=== PATIENT | male | born 1955 | race Caucasian/White ===

== ENCOUNTER 2017-04-17 16:18 | Inpatient (IN) ==
--- NOTE | 2017-04-17 16:50 | Emergency Department Note ---
Disposition Clinical Impression: Renal failure, Hyperkalemia, Dehydration Disposition: Admitted As Inpatient Condition: Fair Referrals: Alyssa Cartwright MD [Primary Care Provider] - Forms: Work/School Release, ED Satisfaction Letter Time of Disposition: 19:21 ([facility]) Nausea/Vomiting/Diarrhea HPI - General Chief complaint: ED General Medical Stated complaint: Vomiting x 2 weeks, SOB, constipation Time Seen by Provider: 04/17/17 16:38 Source: patient Mode of arrival: ambulatory Limitations: no limitations Nursing Notes Reviewed: Yes Vital Signs Reviewed: Yes - History of Present Illness HPI Narrative: pt saw FP earlier this week given antiemetic and no labs ordered at that time no x-rays ordered according to the patient had not had a bowel movement 2 weeks was told to continue with his present medications he had a bowel movement earlier today and since then he just had continued diarrhea he denies fever chills lightheadedness dizziness states the abdominal cramping is better patient states that his week has no energy denies any chest pain chest pressure palpitations states urine output is still down Pt Subjective Complaint: nausea, vomiting, abdominal pain Onset (ago): week(s) (2) Description of emesis: food contents If pain, Location of pain: diffuse Severity: moderate Severity scale (1-10): 5 Quality: cramping Consistency: constant Improves with: bowel movement Worsens with: eating, bowel movement, vomiting Associated symptoms: Reports: loss of appetite, nausea/vomiting, weakness. Denies: myalgias, chest pain, cough, diaphoresis, fever/chills, headaches, malaise, rash, dysuria, shortness of breath, syncope - Related Data Home Medications Medication Instructions Recorded Confirmed Gemfibrozil [Lopid] 600 mg PO BIDWM 09/07/15 04/17/17 Insulin Aspart Prot/Insuln Asp 50 unit SQ TIDAC 09/07/15 04/17/17 [Novolog Mix 70-30 Flexpen Syrn] Metoprolol [Lopressor] 25 mg PO BID 09/07/15 04/17/17 Omeprazole [Prilosec] 40 mg PO DAILY 09/07/15 04/17/17 ALPRAZolam [Xanax 1 MG Tablet] 1 mg PO QID PRN 04/17/17 04/17/17 Amlodipine Besylate/Benazepril 1 each PO DAILY 04/17/17 04/17/17 [Lotrel 10-20 mg Capsule] Budesonide/Formoterol 160/4.5 2 puff IH BIDR 04/17/17 04/17/17 [Symbicort 160/4.5] Dutasteride [Avodart] 0.5 mg PO DAILY 04/17/17 04/17/17 Hydrocodone/Ibuprofen 1 each PO Q6H 04/17/17 04/17/17 [Hydrocodone-Ibuprofen 10-200] Ipratropium/Albuterol Sulfate 4 gm IH QID 04/17/17 04/17/17 [Combivent Respimat Inhal [place]] Niacin [Niacor] 500 mg PO BID 04/17/17 04/17/17 Tamsulosin HCl [Flomax] 0.4 mg PO PRN PRN 04/17/17 04/17/17 Allergies Allergy/AdvReac Type Severity Reaction Status Date / Time No Known Allergies Allergy Verified 08/31/15 08:36 All systems ED: reviewed and negative except as stated. Constitutional: Reports: weakness. Denies: fever, chills Eyes: Denies: eye pain, eye discharge ENT ED: Denies: ear pain, throat pain Cardiovascular: Denies: chest pain, palpitations Respiratory: Denies: cough, dyspnea Gastrointestinal: Reports: abdominal pain, nausea, vomiting, constipation, other (now profound diarrhea) Genitourinary: Denies: urgency, dysuria Musculoskeletal: Denies: back pain, neck pain Integumentary: Denies: rash, abrasion Neurological: Denies: headache Psychiatric: Denies: anxiety Endocrine: Denies: fatigue Hematological/Lymphatic: Denies: easy bleeding Allergic/Immunologic: Denies: facial swelling Past Medical History - Past Medical History Attestation: Yes The following information was validated with the patient. Source: patient, old records reviewed, nursing notes reviewed Medical history: Reports: cancer, COPD, diabetes, hyperlipidemia, hypertension, other Surgical history: Reports: cancer surgery Psychiatric history: Reports: no psych history - Social History Smoking Status: Current every day smoker Smokeless Tobacco Status: No Alcohol use: Reports: none Drug use: Reports: none Physical Exam - General Limitations: no limitations General appearance: alert, in no apparent distress - Head Head exam: atraumatic, normocephalic, normal inspection - Eye Eye exam: Present: normal appearance, PERRL, EOMI - ENT ENT exam: normal exam, normal oropharynx, mucous membranes moist, TM's normal bilaterally, normal external ear exam - Neck Neck exam: Present: normal inspection, full ROM, trachea midline - Chest Chest inspection: Present: normal inspection, symmetric chest wall rise - Respiratory Respiratory exam: Present: normal lung sounds bilaterally - Cardiovascular Cardiovascular exam: Present: regular rate, normal rhythm, normal heart sounds - Abdominal Exam Abdominal exam: Present: soft, Non-Tender, normal bowel sounds. Absent: mass, pulsatile mass - Extremities Exam Extremities exam: Present: other (generalized weakness thru) - Expanded Lower Extremity Exam Neurovascular/Tendon exam: Present: normal capillary refill, normal fine/light touch Gait: observed and normal - Back Exam Back exam: Present: normal inspection, full ROM. Absent: muscle spasm - Neurological Exam Neurological exam: Present: alert, oriented X3, CN II-XII intact - Psychiatric Psychiatric exam: Present: normal affect, normal mood - Skin Skin exam: Present: warm, dry, intact, normal color Course Course Narrative: [facility] seen and examined [facility] Vital Signs Temperature 98.3 F 04/17/17 16:26 Pulse Rate 82 04/17/17 16:26 Respiratory Rate 22 04/17/17 16:26 Blood Pressure 113/67 04/17/17 16:26 O2 Sat by Pulse Oximetry 97 04/17/17 16:26 Temperature 98.3 F 04/17/17 16:30 Pulse Rate 70 04/17/17 18:38 Respiratory Rate 16 04/17/17 18:38 Blood Pressure 128/71 04/17/17 18:38 O2 Sat by Pulse Oximetry 99 04/17/17 18:38 Oxygen Delivery Oxygen Delivery Room Air Nausea/Vomiting/Diarrhea - Differential Diagnosis Likely: dehydration - Medical Records Medical records reviewed: Yes I reviewed the patient's medical records. - Lab Data Lab results reviewed: Yes I reviewed the patient's lab results. Result diagrams: 04/17/17 17:00 04/17/17 17:00 Lab Results 04/17/17 04/17/17 04/17/17 Range/Units 15:44 17:00 17:00 WBC 9.4 (4.3-11.1) K/mcL RBC 4.29 (4.19-5.50) M/mcL Hgb 12.9 (12.9-16.9) g/dL Hct 37.5 (37.5-50.1) % MCV 87.4 (83.0-100.0) fL MCH 30.1 (28.0-33.3) pg MCHC 34.4 (31.6-35.5) g/dL RDW 12.4 (11.5-14.5) % Plt Count 327 (140-400) K/mcL MPV 10.3 (9.4-12.4) fL Immature Gran % 1.0 (0-4) % Seg Neutrophils % 72.1 % Lymphocytes % 18.0 % Monocytes % 8.2 % Eosinophils % 0.5 % Basophils % 0.2 % Neutrophils # 6.7 (1.6-8.9) K/mcL Lymphocytes # 1.7 (0.6-4.6) K/mcL Monocytes # 0.8 (0.0-1.3) K/mcL Eosinophils # 0.1 (0.0-0.6) K/mcL Basophils # 0.0 (0.0-0.2) K/mcL PT 12.0 (9.4-12.1) Seconds INR 1.1 APTT 36.4 H (26.0-36.0) Seconds Sodium (136-145) mEq/L Potassium 7.6 H* (3.5-4.5) mEq/L Chloride (98-109) mEq/L Carbon Dioxide (19-29) mEq/L BUN (8-26) mg/dL Creatinine (0.72-1.25) mg/dL Est GFR ( Amer) (> 60) Est GFR (Non-Af Amer) (> 60) BUN/Creatinine Ratio (6-26) Glucose (70-99) mg/dL Calculated Osmolality (280-300) Calcium (8.6-10.8) mg/dL Total Bilirubin (0.2-1.2) mg/dL AST (5-34) Units/L ALT (0-55) Units/L Alkaline Phosphatase (38-126) Units/L Serum Total Protein (6.0-8.3) g/dL Albumin (3.5-5.0) g/dL Globulin (2.4-3.5) g/dL Albumin/Globulin Ratio (1.1-2.2) Urine Color (Yellow) Urine Clarity (Clear) Urine pH (5.0-8.0) pH Units Ur Specific Sterling (1.010-1.025) Urine Protein (Neg-Trace) mg/dL Urine Glucose (UA) (Normal) mg/dL Urine Ketones (Negative) mg/dL Urine Blood (Negative) Urine Nitrite (Negative) Urine Bilirubin (Negative) Urine Urobilinogen (Normal) mg/dL Ur Leukocyte Esterase (Negative) Ur Culture Indicated? (NO) 04/17/17 04/17/17 Range/Units 17:00 17:10 WBC (4.3-11.1) K/mcL RBC (4.19-5.50) M/mcL Hgb (12.9-16.9) g/dL Hct (37.5-50.1) % MCV (83.0-100.0) fL MCH (28.0-33.3) pg MCHC (31.6-35.5) g/dL RDW (11.5-14.5) % Plt Count (140-400) K/mcL MPV (9.4-12.4) fL Immature Gran % (0-4) % Seg Neutrophils % % Lymphocytes % % Monocytes % % Eosinophils % % Basophils % % Neutrophils # (1.6-8.9) K/mcL Lymphocytes # (0.6-4.6) K/mcL Monocytes # (0.0-1.3) K/mcL Eosinophils # (0.0-0.6) K/mcL Basophils # (0.0-0.2) K/mcL PT (9.4-12.1) Seconds INR APTT (26.0-36.0) Seconds Sodium 129 L (136-145) mEq/L Potassium 8.1 H* (3.5-4.5) mEq/L Chloride 104 (98-109) mEq/L Carbon Dioxide 10 L* (19-29) mEq/L BUN 68 H (8-26) mg/dL Creatinine 2.20 H (0.72-1.25) mg/dL Est GFR ( Amer) 37 L (> 60) Est GFR (Non-Af Amer) 30 L (> 60) BUN/Creatinine Ratio 31 H (6-26) Glucose 202 H (70-99) mg/dL Calculated Osmolality 294 (280-300) Calcium 10.1 (8.6-10.8) mg/dL Total Bilirubin 0.4 (0.2-1.2) mg/dL AST 15 (5-34) Units/L ALT 8 (0-55) Units/L Alkaline Phosphatase 94 (38-126) Units/L Serum Total Protein 7.4 (6.0-8.3) g/dL Albumin 3.4 L (3.5-5.0) g/dL Globulin 4.0 H (2.4-3.5) g/dL Albumin/Globulin Ratio 0.9 L (1.1-2.2) Urine Color Yellow (Yellow) Urine Clarity Clear (Clear) Urine pH 5.0 (5.0-8.0) pH Units Ur Specific Sterling 1.020 (1.010-1.025) Urine Protein Negative (Neg-Trace) mg/dL Urine Glucose (UA) Normal (Normal) mg/dL Urine Ketones 15 H (Negative) mg/dL Urine Blood Negative (Negative) Urine Nitrite Negative (Negative) Urine Bilirubin Small H (Negative) Urine Urobilinogen Normal (Normal) mg/dL Ur Leukocyte Esterase Negative (Negative) Ur Culture Indicated? NO (NO) - Radiology Data Radiology results reviewed: Yes I reviewed the patient's radiology results. - EKG Data EKG attestation: Yes I reviewed and interpreted this EKG. EKG results narrative: Sinus rhythm rate 77 GA 198 QRS 92 QT 330 excess -49 Critical Care Time Critical Care Time: Yes Total Critical Care Time: 35 Attestation: Critical care performed:35 minutes due to the patient having a hyperkalemia with the patient as result of the patient requiring medications to reverse the potassium and repeating the potassium shifting that is actually much lower patient though was admitted for observation service of Dr. Newman Time is exclusive of separately billable procedures. Time includes: direct patient care, patient reassessment, coordination of patient care, interpretation of data (laboratory data, radiology data, and respiratory data), review of patient's medical records, medical consultation and documentation of patient care. Procedures included in critical care time: Procedures excluded from critical care time:
[2017-04-17 17:06] LABS: Basophils % 0.2 %; Eosinophils # 0.1 K/mcL (0.0-0.6); Eosinophils % 0.5 %; Hematocrit 37.5 % (37.5-50.1); Hemoglobin 12.9 g/dL (12.9-16.9); Lymphocytes # 1.7 K/mcL (0.6-4.6); Mean Corpuscular HGB Conc 34.4 g/dL (31.6-35.5); Mean Corpuscular Hemoglobin 30.1 pg (28.0-33.3); Mean Corpuscular Volume 87.4 fL (83.0-100.0); Mean Platelet Volume 10.3 fL (9.4-12.4); Monocytes # 0.8 K/mcL (0.0-1.3); Monocytes % 8.2 %; Neutrophils # 6.7 K/mcL (1.6-8.9); Platelet Count 327 K/mcL (140-400); Red Blood Count 4.29 M/mcL (4.19-5.50); Red Cell Distribution Width 12.4 % (11.5-14.5); Segmented Neutrophils % 72.1 %
[2017-04-17 17:11] LABS: INR 1.1
[2017-04-17 17:14] LABS: Activated Partial Thrombo Time 36.4 Seconds (26.0-36.0)
[2017-04-17 17:15] LABS: Bilirubin,Urine Small (Negative); Blood,Urine Negative (Negative); Clarity,Urine Clear (Clear); Color,Urine Yellow (Yellow); Glucose,Urine (UA) Normal (Normal); Ketones,Urine 15 mg/dL (Negative); Leukocyte Esterase,Urine Negative (Negative); Nitrite,Urine Negative (Negative); Protein,Urine Negative (Neg-Trace); Urobilinogen,Urine Normal (Normal)
[2017-04-17 17:22] LABS: Albumin 3.4 g/dL (3.5-5.0); Albumin/Globulin Ratio 0.9 (1.1-2.2); Bilirubin,Total 0.4 mg/dL (0.2-1.2); Calcium 10.1 mg/dL (8.6-10.8); Total Protein 7.4 g/dL (6.0-8.3)
[2017-04-17 17:25] LABS: Potassium 8.1 mEq/L (3.5-4.5)
[2017-04-17] MEDS ORDERED: Calcium Gluconate 1,000 MG in D5% in Water 100 ML IVPB ONE (17:26)
[2017-04-17] MEDS ORDERED: Insulin Regular, Human 100 UNIT/ML SQ ONE (17:26)
[2017-04-17] MEDS ORDERED: 0.9 % Sodium Chloride 1,000 ML IVC ONE (17:26)
[2017-04-17] MEDS: *HR* Dextrose 50 % in Water (Syg) 50 ML SYRINGE IVP STA ×2 (17:37→17:40)
[2017-04-17] MEDS ORDERED: Insulin Regular, Human 100 UNIT/ML IV ONE (17:47)
[2017-04-17] MEDS ORDERED: Ondansetron 4 MG/2 ML VIAL IVP ONE (20:39)
[2017-04-17] MEDS ORDERED: *HR* Dextrose 50 % in Water (Syg) 50 ML SYRINGE IVP PRN (20:39)
[2017-04-17] MEDS ORDERED: IBUPROFEN PO SCH (20:39)
[2017-04-17] MEDS ORDERED: Naloxone 0.4 MG/ML INJ IVP PRN (20:39)
[2017-04-17] MEDS ORDERED: ALPRAZolam 1 MG TABLET PO PRN (20:39)
[2017-04-17] MEDS ORDERED: Dextrose Gel 15 GM PO PRN ×2 (20:39)
[2017-04-17] MEDS ORDERED: D5% in Water 1,000 ML IVC PRN (20:39)
[2017-04-17] MEDS ORDERED: HYDROCODONE PO SCH (20:39)
[2017-04-17] MEDS ORDERED: [UNRECOGNIZED DRUG - OTHER] PO SCH (20:39)
[2017-04-17] MEDS ORDERED: NON-FORMULARY MEDICATION 1 EACH EACH (Ipratropium/Albuterol Sulfate [Combivent Respimat In IH SCH (21:00)
[2017-04-17] MEDS: 0.9 % Sodium Chloride 1,000 ML IVC SCH (21:27)
[2017-04-17] MEDS: Niacin (24 HR) 500 MG TAB.ER.24H PO SCH (21:27)
[2017-04-18] MEDS ORDERED: *HR* HYDROcodone/Acet 10/325 mg TABLET PO ONE
[2017-04-18] MEDS: Ipratropium 1 PUFF INHALER IH SCH ×5 (00:26→22:01)
[2017-04-18] MEDS: Budesonide/Formoterol 160/4.5 MDI IH SCH ×3 (00:26→22:00)
[2017-04-18] MEDS: 0.9 % Sodium Chloride 1,000 ML IVC SCH (05:31)
[2017-04-18 06:25] LABS: Basophils % 0.3 %; Eosinophils # 0.1 K/mcL (0.0-0.6); Eosinophils % 1.7 %; Hematocrit 34.6 % (37.5-50.1); Hemoglobin 11.9 g/dL (12.9-16.9); INR 1.1; Immature Granulocytes % 1.3 % (0-4); Lymphocytes # 2.1 K/mcL (0.6-4.6); Lymphocytes % 27.2 %; Mean Corpuscular HGB Conc 34.4 g/dL (31.6-35.5); Mean Corpuscular Hemoglobin 30.5 pg (28.0-33.3); Mean Corpuscular Volume 88.7 fL (83.0-100.0); Mean Platelet Volume 11.2 fL (9.4-12.4); Monocytes # 1.1 K/mcL (0.0-1.3); Monocytes % 13.9 %; Neutrophils # 4.3 K/mcL (1.6-8.9); Platelet Count 265 K/mcL (140-400); Red Cell Distribution Width 12.5 % (11.5-14.5); Segmented Neutrophils % 55.6 %
[2017-04-18 06:27] LABS: Activated Partial Thrombo Time 34.2 Seconds (26.0-36.0)
[2017-04-18 07:00] LABS: Calcium 9.5 mg/dL (8.6-10.8); Phosphorous 3.7 mg/dL (2.3-4.7); Potassium 6.3 mEq/L (3.5-4.5)
[2017-04-18] MEDS ORDERED: NON-FORMULARY MEDICATION 1 EACH EACH (Insulin Aspart Prot/Insuln Asp [Novolog Mix 70-30 Fl SQ SCH (07:30)
[2017-04-18] MEDS: Niacin (24 HR) 500 MG TAB.ER.24H PO SCH ×2 (08:10→21:10)
[2017-04-18] MEDS: amLODIPine 5 MG TABLET PO SCH (08:11)
[2017-04-18] MEDS: Finasteride 5 MG TABLET PO SCH (08:11)
[2017-04-18] MEDS: Insulin LISPRO 300 UNITS/3 ML VIAL SQ SCH ×3 (08:11→16:30)
[2017-04-18] MEDS ORDERED: Lisinopril 20 MG TABLET PO SCH (09:00)
[2017-04-18] MEDS ORDERED: NON-FORMULARY MEDICATION 1 EACH EACH (Amlodipine Besylate/Benazepril [Lotrel 10-20 Mg Caps PO SCH (09:00)
[2017-04-18] MEDS: Insulin NPH/REG 70/30 100 UNIT/ML (x5UNIT) SQ SCH ×3 (09:09→20:35)
--- NOTE | 2017-04-18 11:34 | Internal Med History&Physical ---
Date of Encounter: 04/18/17 Time of Encounter: 11:10 Assessment and Plan (1) Acute on chronic renal failure Current visit: Yes Status: Acute We will hold Lotrel and Vicoprofen. IV fluids will be given and renal indices monitored Qualifiers: Acute renal failure type: unspecified Chronic kidney disease stage: stage 3 (moderate) Qualified Code(s): N17.9 - Acute kidney failure, unspecified; N18.3 - Chronic kidney disease, stage 3 (moderate) (2) Metabolic acidosis Current visit: Yes Status: Acute Normal anion gap. Suspect primarily due to renal failure with superimposed GI losses. Will hold medications as above and recheck labs in a.m. (3) Anemia Current visit: Yes Status: Acute Hemoglobin has decreased to 11.9 on follow-up labs 04/18/2017. Will order anemia testing in a.m. Qualifiers: Anemia type: unspecified type Qualified Code(s): D64.9 - Anemia, unspecified (4) Hypertension Current visit: Yes Status: Chronic Will hold Lotrel but continue Lopressor and monitor blood pressure. Qualifiers: Hypertension type: essential hypertension Qualified Code(s): I10 - Essential (primary) hypertension (5) Hyperkalemia Current visit: Yes Status: Acute Primarily due to acidosis. We will give additional Kayexalate. Internal Medicine - H&P: HPI Chief complaint: Nausea and renal failure Admitted From: Home Plans for Post Hospital Care: Home History of present illness: Mr. Lopez is a 61 year old male who came to emergency room stating he had onset of nausea approximately one month ago. There was occasional vomiting but he denies hematemesis melena or hematochezia. He had occasional abdominal pain that he simply describes as a diffuse "hurting" in his abdomen. He saw his PCP Dr. Cartwright last week who gave him "medicine". He does not know the name. He states the pill did not help so he came to emergency room and was evaluated and found to have metabolic acidosis with hyperkalemia and acute on chronic renal failure. He was admitted to [facility] floor for ongoing care needs. He states he feels improved at the present time. He denies previous similar episodes. He denies disorders of his liver gallbladder or exocrine pancreas. Past Med Surg Social Fam HX - Past Medical History Medical history: cancer, COPD, diabetes, hyperlipidemia, hypertension, other Psychiatric history: no psych history - Past Surgical History Surgical History: cancer surgery - Social History Smoking Status: Current every day smoker Packs per day: 1 Smokeless Tobacco Status: No Alcohol use: none Drug use: none - Family History Sister Living Status: Still Living Hx Family Endocrine Disorder: Yes (DM 2) Internal Medicine - H&P: Meds Gemfibrozil [Lopid] 600 mg PO BIDWM 09/07/15 [History] Insulin Aspart Prot/Insuln Asp [Novolog Mix 70-30 Flexpen Syrn] 50 unit SQ TIDAC 09/07/15 [History] Metoprolol [Lopressor] 25 mg PO BID 09/07/15 [History] Omeprazole [Prilosec] 40 mg PO DAILY 09/07/15 [History] ALPRAZolam [Xanax 1 MG Tablet] 1 mg PO QID PRN 04/17/17 [History] Amlodipine Besylate/Benazepril [Lotrel 10-20 mg Capsule] 1 each PO DAILY [History] Budesonide/Formoterol 160/4.5 [Symbicort 160/4.5] 2 puff IH BIDR 04/17/17 [ History] Dutasteride [Avodart] 0.5 mg PO DAILY 04/17/17 [History] Hydrocodone/Ibuprofen [Hydrocodone-Ibuprofen 10-200] 1 each PO Q6H 04/17/17 [ History] Ipratropium/Albuterol Sulfate [Combivent Respimat Inhal [place]] 4 gm IH QID 04/17 [History] Niacin [Niacor] 500 mg PO BID 04/17/17 [History] Tamsulosin HCl [Flomax] 0.4 mg PO PRN PRN 04/17/17 [History] Allergies No Known Allergies Allergy (Verified 08/31/15 08:36) All Systems PM: A 10-system review of systems was performed and is negative for pertinent findings except as documented above in the HPI. Review of systems: Gen.: He states his weight has decreased from 190 pounds 5 months ago to present weight of approximately 145 pounds. This was unintentional he has no explanation for it Cardiovascular: He has history of hypertension but denies ND heart failure angina DVT or pulmonary embolus Respiratory: He smokes since age 11 of 2 packs per day. He had PFTs several years and was told he had COPD. He does not use home oxygen. He has not been tested for sleep apnea. GI: As per history of present illness : He has BPH and has seen a urologist. From review of available archived labs has chronic kidney disease stage 2-3 but was unaware of this. He denies other kidney or bladder disorders Neurologic: He denies large distribution strokes or seizures Endocrine: He was diagnosed with DM 2 approximately 10 years ago. He has hyperlipidemia but denies thyroid disease. TSH was normal October 2016 Hematology/oncology: He had skin cancer removed from his head but denies internal malignancies or other blood disorders Psychiatric: He denies anxiety depression or other mental health issues Musk skeletal: He has DJD but denies gout or other bone joint or muscle disorders. - Constitutional Vitals: Temp Pulse Resp BP Pulse Ox 98.5 F 79 18 113/67 98 04/18/17 07:05 04/18/17 07:05 04/18/17 07:05 04/18/17 07:05 04/18/17 07:05 Exam: Gen.: He is a well-developed well-nourished male who appears in no acute distress at present time HEENT: Head is atraumatic and normocephalic. Eyes: EOMI. There is no scleral icterus. Mouth: Mucosa is moist. Neck: Supple and nontender. There is no thyromegaly or adenopathy noted. Heart: Regular without murmurs gallops or ectopics Lungs: No wheezes or crackles are heard Abdomen: Soft and nontender. No masses or guarding are noted. Bowel sounds are present. Extremities: There is no cyanosis edema or clubbing noted. Dorsalis pedis and posttibial pulses are 1-2 over 2 bilaterally. Neurologic: Mental status: He is talkative and a good historian. Cranial nerves : Smile is symmetric. Forehead wrinkles bilaterally. Tongue protrudes midline. EOMI. Motor: There is no pronator drift. Cerebellar: Finger to nose is intact bilaterally. Skin: Warm and dry Internal Med - H&P Results - Labs CBC & Chem 7: 04/18/17 05:25 04/18/17 05:25 Labs: Short CBC 04/18/17 Range/Units 05:25 WBC 7.6 (4.3-11.1) K/mcL Hgb 11.9 L (12.9-16.9) g/dL Hct 34.6 L (37.5-50.1) % Plt Count 265 (140-400) K/mcL Neutrophils # 4.3 (1.6-8.9) K/mcL BMP 04/18/17 05:25 Sodium 135 L Potassium 6.3 H D Chloride 110 H Carbon Dioxide 13 L BUN 49 H D Creatinine 1.68 H Glucose 172 H Calcium 9.5
--- NOTE | 2017-04-18 13:02 | Electrocardiograph Report ---
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
[2017-04-18] MEDS: *HR* Enoxaparin 40 MG/0.4 ML SYRINGE SQ SCH (16:20)
[2017-04-18] MEDS ORDERED: Insulin LISPRO 300 UNITS/3 ML VIAL SQ SCH (21:00)
[2017-04-18] MEDS: *HR* HYDROcodone/Acet 10/325 mg TABLET PO PRN (21:12)
[2017-04-19] MEDS: *HR* HYDROcodone/Acet 10/325 mg TABLET PO PRN (03:22)
[2017-04-19 04:30] LABS: Basophils % 0.2 %; Eosinophils # 0.1 K/mcL (0.0-0.6); Eosinophils % 1.5 %; Hematocrit 29.6 % (37.5-50.1); Hemoglobin 10.1 g/dL (12.9-16.9); Lymphocytes # 2.4 K/mcL (0.6-4.6); Lymphocytes % 29.9 %; Mean Corpuscular HGB Conc 34.1 g/dL (31.6-35.5); Mean Corpuscular Hemoglobin 29.8 pg (28.0-33.3); Mean Corpuscular Volume 87.3 fL (83.0-100.0); Mean Platelet Volume 10.9 fL (9.4-12.4); Monocytes % 11.9 %; Neutrophils # 4.5 K/mcL (1.6-8.9); Platelet Count 215 K/mcL (140-400); Red Blood Count 3.39 M/mcL (4.19-5.50); Red Cell Distribution Width 12.5 % (11.5-14.5); Segmented Neutrophils % 55.5 %
[2017-04-19 04:46] LABS: BUN/Creatinine Ratio 20 (6-26); Blood Urea Nitrogen 23 mg/dL (8-26); Calcium 8.6 mg/dL (8.6-10.8); Carbon Dioxide 16 mEq/L (19-29); Chloride 112 mEq/L (98-109); Glucose 60 mg/dL (70-99); Osmolality,Calculated 290 (280-300); Sodium 139 mEq/L (136-145); eGFR For African Americans > 60 (> 60); eGFR For Non-African Americans > 60 (> 60)
[2017-04-19] MEDS: *HR* Enoxaparin 40 MG/0.4 ML SYRINGE SQ SCH (05:37)
[2017-04-19] MEDS: Ipratropium 1 PUFF INHALER IH SCH (05:50)
[2017-04-19] MEDS: Insulin LISPRO 300 UNITS/3 ML VIAL SQ SCH (07:32)
[2017-04-19] MEDS: amLODIPine 5 MG TABLET PO SCH (08:07)
[2017-04-19] MEDS: Finasteride 5 MG TABLET PO SCH (08:07)
[2017-04-19] MEDS: Niacin (24 HR) 500 MG TAB.ER.24H PO SCH (08:07)
--- NOTE | 2017-04-19 10:32 | Discharge Summary ---
Date of Encounter: 04/19/17 Time of Encounter: 10:20 - Discharge Diagnosis (1) Acute on chronic renal failure Priority: Primary Status: Acute Qualifiers: Acute renal failure type: unspecified Chronic kidney disease stage: stage 3 (moderate) Qualified Code(s): N17.9 - Acute kidney failure, unspecified; N18.3 - Chronic kidney disease, stage 3 (moderate) (2) Metabolic acidosis Priority: Secondary Status: Acute (3) Anemia Priority: Secondary Status: Acute Qualifiers: Anemia type: unspecified type Qualified Code(s): D64.9 - Anemia, unspecified (4) Hypertension Priority: Secondary Status: Chronic Qualifiers: Hypertension type: essential hypertension Qualified Code(s): I10 - Essential (primary) hypertension (5) Hyperkalemia Priority: Secondary Status: Acute - Discharge Medications Prescriptions: HYDROcodone/Acet 10/325 mg [Jefferson 10-325 mg] 1 tab PO Q4HR PRN #20 tab PRN Reason: Pain amLODIPine [Norvasc] 5 mg PO DAILY #30 tablet Metoprolol Succinate 100 mg PO DAILY #30 tab.er.24h Home Medications: Gemfibrozil [Lopid] 600 mg PO BIDWM 09/07/15 [History] Insulin Aspart Prot/Insuln Asp [Novolog Mix 70-30 Flexpen Syrn] 50 unit SQ TIDAC 09/07/15 [History] Omeprazole [PriLOSEC] 40 mg PO DAILY 09/07/15 [History] ALPRAZolam [Xanax 1 MG Tablet] 1 mg PO QID PRN 04/17/17 [History] Budesonide/Formoterol 160/4.5 [Symbicort 160/4.5] 2 puff IH BIDR 04/17/17 [ History] Dutasteride [Avodart] 0.5 mg PO DAILY 04/17/17 [History] Ipratropium/Albuterol Sulfate [Combivent Respimat Inhal [place]] 4 gm IH QID 04/17 [History] Niacin [Niacor] 500 mg PO BID 04/17/17 [History] Tamsulosin HCl [Flomax] 0.4 mg PO PRN PRN 04/17/17 [History] HYDROcodone/Acet 10/325 mg [Jefferson 10-325 mg] 1 tab PO Q4HR PRN #20 tab 07/04/17 [Rx] Metoprolol Succinate 100 mg PO DAILY #30 tab.er.24h 04/19/17 [Rx] amLODIPine [Norvasc] 5 mg PO DAILY #30 tablet 04/19/17 [Rx] Allergies/Adverse Reactions: Allergies No Known Allergies Allergy (Verified 08/31/15 08:36) Date of admission: 04/18/17 15:42 Primary care physician: Alyssa Cartwright - Patient Status Disposition: Home, Self-Care Condition: Fair Functional capacity at discharge: independent ambulation Overall status at discharge: patient is progressing back to baseline - Discharge Instructions Follow Up With: Alyssa Cartwrigth MD [Primary Care Provider] - 1 week - Diet and Activity Activity: resume usual activities as tolerated Diet: advance to your usual diet Hospital course: Mr. Lopez is a 61 year old male who came to emergency room stating he had onset of nausea approximately one month ago. There was occasional vomiting but he denies hematemesis melena or hematochezia. He had occasional abdominal pain that he simply describes as a diffuse "hurting" in his abdomen. He saw his PCP Dr. Cartwright last week who gave him "medicine". He does not know the name. He states the pill did not help so he came to emergency room and was evaluated and found to have metabolic acidosis with hyperkalemia and acute on chronic renal failure. He was admitted to [facility] floor for ongoing care needs. Initial orders were written by the emergency room physician. I saw him on April 18 and performed the history and physical. He was given Kayexalate in the emergency room for hyperkalemia. I gave an additional dose the following day and his potassium level decreased to 5.0 on the day of discharge. Metabolic acidosis significantly improved with serum CO2 16 on the day of discharge. His creatinine improved with discontinuation of Vicoprofen and Lotrel. BUN and creatinine were 23 and 1.17 respectively on the day of discharge with estimated GFR greater than 60. He had complete resolution of his nausea and abdominal discomfort when I saw him April 19. He wished to be discharged home which I felt was reasonable. He will remain off Vicoprofen and Lotrel. I gave him a prescription for Toprol-XL and amlodipine at discharge. I also gave him Jefferson to replace the Vicoprofen. He will follow with his PCP Dr. Cartwright within 1 week. I encouraged him to discontinue smoking. Anemia testing and hemoglobin A1c were ordered with results pending at time of discharge. - Time Spent with Patient Total time spent providing and/or coordinating discharge services: - Constitutional Vitals: Temp Pulse Resp BP Pulse Ox 97.7 F 94 16 137/69 97 04/19/17 06:58 04/19/17 07:56 04/19/17 07:56 04/19/17 07:56 04/19/17 07:56
[2017-04-19 10:33] VITALS: BP 135/66
[2017-04-19 15:27] LABS: % Iron Saturation 22 % (20-55); Iron 61 mcg/dL (65-175); Transferrin 198 mg/dL (174-364)
[2017-04-19 15:29] LABS: Hemoglobin A1C 9.2 %
[2017-04-19 16:09] LABS: Folate 5.5 ng/mL (7.0-31.4)
[2017-04-19 19:26] LABS: Ferritin 589 ng/ml (22-275)
== END 2017-04-19 11:40 | disposition home or self-care (01) | DRG 469 ==
LOC: EMEROOPIK 16:18 → INPPIK 16:18
PROVIDERS: ADMIT Internal Medicine; ATTEND Internal Medicine